=== PATIENT | male | born 1980 | race Caucasian/White ===

== ENCOUNTER 2020-12-14 14:59 | Emergency (ER) | payer BC, OTHER ==
[2020-12-14 15:23] VITALS: BP 128/86; PULSE 105
[2020-12-14] MEDS ORDERED: Lactated Ringers 1,000 ML IV ONE (15:31)
--- NOTE | 2020-12-14 15:31 | EDM.PDOC ---
ED HPI GENERAL MEDICAL PROBLEM - General Stated Complaint: ABD PAIN LOWER RIGHT Time Seen by Provider: 12/14/20 15:16 Source of Information: Reports: Patient, RN, RN Notes Reviewed History Limitations: Reports: No Limitations - History of Present Illness INITIAL COMMENTS - FREE TEXT/NARRATIVE: Alyson is a 40 y/o male who presents to the ED via personal vehicle with complaints of RLQ abdominal pain and constipation. The patient reports his pain began two nights ago and has waxed and waned in severity over that time. He characterizes the pain as a dull ache that occasionally causes cramping; he notes the pain sometimes radiates into his bilateral flanks. The patient states his last bowel movement was four days ago, he has subsequently been taking MiraLAX, stool softeners, and mineral oil for constipation with no results. Additionally, he reports mild dysuria which began this morning. He denies fever, shaking chills, nausea, vomiting, hematuria, or inability to void. Right Lower Abdomen Pain Score (Numeric/FACES): 4 - Related Data Allergies Allergy/AdvReac Type Severity Reaction Status Date / Time seasonal allergies Allergy Cannot Uncoded 12/14/20 15:29 Remember Home Meds: Home Meds Albuterol [Ventolin HFA] 2 puff INH Q4H PRN 05/03/15 [History] Budesonide 1 spray NASBOTH ASDIRECTED 05/03/15 [History] Cetirizine HCl/Pseudoephedrine [ZyrTEC-D] 1 tab PO BID PRN 05/03/15 [History] Omeprazole 20 mg PO DAILY 03/09/18 [History] Past Medical History Cardiovascular History: Reports: None Respiratory History: Reports: None Other Respiratory History: RAD from Seasonal Allergies Gastrointestinal History: Reports: Other (See Below) Other Gastrointestinal History: food gets stuck in throat Musculoskeletal History: Reports: None Neurological History: Reports: None Psychiatric History: Reports: None Endocrine/Metabolic History: Reports: None Hematologic History: Reports: None Immunologic History: Reports: None Oncologic (Cancer) History: Reports: None Dermatologic History: Reports: None - Past Surgical History HEENT Surgical History: Reports: Tonsillectomy Musculoskeletal Surgical History: Reports: None Social & Family History - Family History Family Medical History: No Pertinent Family History - Living Situation & Occupation Occupation: Employed ED ROS GENERAL - Review of Systems Review Of Systems: Comprehensive ROS is negative, except as noted in HPI. ED EXAM, GI/ABD - Physical Exam Exam: See Below Exam Limited By: No Limitations General Appearance: Alert, No Apparent Distress Eyes: Bilateral: Normal Appearance, EOMI Ears: Normal External Exam, Hearing Grossly Normal Nose: Normal Inspection, Normal Mucosa, No Blood Throat/Mouth: Normal Inspection, Normal Oropharynx, Normal Voice, No Airway Compromise Head: Atraumatic, Normocephalic Neck: Normal Inspection, Supple, Non-Tender, Full Range of Motion Respiratory/Chest: No Respiratory Distress, Lungs Clear, Normal Breath Sounds, No Accessory Muscle Use, Chest Non-Tender Cardiovascular: Normal Peripheral Pulses, Regular Rate, Rhythm, No Edema, No Gallop, No JVD, No Murmur, No Rub GI/Abdominal Exam: Soft, No Distention, No Abnormal Bruit, No Mass, Pelvis Stable, Tender (To palpation of RLQ), Abnormal Bowel Sounds (Hypoactive). No: Guarding, Rigid, Rebound (Male) Exam: Deferred Rectal (Males) Exam: Deferred Back Exam: Normal Inspection, Full Range of Motion. No: CVA Tenderness (L), CVA Tenderness (R) Extremities: Normal Inspection, Normal Range of Motion, Non-Tender, Normal C apillary Refill, No Pedal Edema Neurological: Alert, Oriented, CN II-XII Intact, Normal Cognition, Normal Gait, Normal Reflexes, No Motor/Sensory Deficits Psychiatric: Normal Affect, Normal Mood Skin Exam: Warm, Dry, Intact, Normal Color, No Rash. No: Cyanosis, Diaphoretic, Erythema, Jaundice, Mottled, Pallor, Petechiae Course - Vital Signs Last Recorded V/S: Last Vital Signs Temp 99.8 F 12/14/20 15:21 Pulse 105 H 12/14/20 15:21 Resp 16 12/14/20 15:21 BP 128/86 12/14/20 15:21 Pulse Ox 98 12/14/20 15:21 - Orders/Labs/Meds Labs: Laboratory Tests 12/14/20 12/14/20 12/14/20 Range/Units 15:18 15:18 15:18 WBC 14.4 H (5.0-10.0) 10^3/uL RBC 5.43 (4.6-6.2) 10^6/uL Hgb 16.2 (14.0-18.0) g/dL Hct 47.3 (40.0-54.0) % MCV 87.1 (80-100) fL MCH 29.8 (27.0-34.0) pg MCHC 34.2 (33.0-35.0) g/dL Plt Count 191 (150-450) 10^3/uL Neut % (Auto) 72.8 (42.2-75.2) % Lymph % (Auto) 14.9 L (20.5-50.1) % Ray % (Auto) 11.6 H (2-8) % Eos % (Auto) 0.5 L (1.0-3.0) % Baso % (Auto) 0.2 (0.0-1.0) % Sodium 139 (136-145) mmol/L Potassium 3.9 (3.5-5.1) mmol/L Chloride 98 (98-107) mmol/L Carbon Dioxide 29 (21-32) mmol/L Anion Gap 15.9 H (7-13) mEq/L BUN 8 (7-18) mg/dL Creatinine 0.96 (0.70-1.30) mg/dL Est Cr Clr Drug Dosing 107.73 mL/min Estimated GFR (MDRD) > 60 BUN/Creatinine Ratio 8.3 (No establ ref range) Glucose 105 H (70-99) mg/dL Lactic Acid 1.1 (0.4-2.0) mmol/L Calcium 9.0 (8.5-10.1) mg/dL Total Bilirubin 1.3 H (0.2-1.0) mg/dL AST 20 (15-37) U/L ALT 62 (16-63) U/L Alkaline Phosphatase 80 (46-116) U/L C-Reactive Protein 19.2 H (0.0-0.9) mg/dL Total Protein 7.7 (6.4-8.2) g/dL Albumin 3.7 (3.4-5.0) g/dL Globulin 4.0 Albumin/Globulin Ratio 0.9 Urine Color (YELLOW) Urine Appearance (CLEAR) Urine pH (5.0-9.0) Ur Specific [place] (1.005-1.030) Urine Protein (NEGATIVE) Urine Glucose (UA) (NEGATIVE) Urine Ketones (NEGATIVE) Urine Occult Blood (NEGATIVE) Urine Nitrite (NEGATIVE) Urine Bilirubin (NEGATIVE) Urine Urobilinogen (0.2-1.0) mg/dL Ur Leukocyte Esterase (NEGATIVE) Urine RBC (0-5) /HPF Urine WBC (0-5/HPF) /HPF Ur Epithelial Cells (NOT SEEN) /HPF Urine Opiates Screen (NEGATIVE) Ur Oxycodone Screen (NEGATIVE) Urine Methadone Screen (NEGATIVE) Ur Barbiturates Screen (NEGATIVE) U Tricyclic Antidepress (NEGATIVE) Ur Phencyclidine Scrn (NEGATIVE) Ur Amphetamine Screen (NEGATIVE) U Methamphetamines Scrn (NEGATIVE) Urine MDMA Screen (NEGATIVE) U Benzodiazepines Scrn (NEGATIVE) Urine Cocaine Screen (NEGATIVE) U Marijuana (THC) Screen (NEGATIVE) 12/14/20 12/14/20 Range/Units 16:01 16:01 WBC (5.0-10.0) 10^3/uL RBC (4.6-6.2) 10^6/uL Hgb (14.0-18.0) g/dL Hct (40.0-54.0) % MCV (80-100) fL MCH (27.0-34.0) pg MCHC (33.0-35.0) g/dL Plt Count (150-450) 10^3/uL Neut % (Auto) (42.2-75.2) % Lymph % (Auto) (20.5-50.1) % Ray % (Auto) (2-8) % Eos % (Auto) (1.0-3.0) % Baso % (Auto) (0.0-1.0) % Sodium (136-145) mmol/L Potassium (3.5-5.1) mmol/L Chloride (98-107) mmol/L Carbon Dioxide (21-32) mmol/L Anion Gap (7-13) mEq/L BUN (7-18) mg/dL Creatinine (0.70-1.30) mg/dL Est Cr Clr Drug Dosing mL/min Estimated GFR (MDRD) BUN/Creatinine Ratio (No establ ref range) Glucose (70-99) mg/dL Lactic Acid (0.4-2.0) mmol/L Calcium (8.5-10.1) mg/dL Total Bilirubin (0.2-1.0) mg/dL AST (15-37) U/L ALT (16-63) U/L Alkaline Phosphatase (46-116) U/L C-Reactive Protein (0.0-0.9) mg/dL Total Protein (6.4-8.2) g/dL Albumin (3.4-5.0) g/dL Globulin Albumin/Globulin Ratio Urine Color Yellow (YELLOW) Urine Appearance Clear (CLEAR) Urine pH 7.0 (5.0-9.0) Ur Specific [place] 1.015 (1.005-1.030) Urine Protein Negative (NEGATIVE) Urine Glucose (UA) Negative (NEGATIVE) Urine Ketones 15 H (NEGATIVE) Urine Occult Blood Trace-intact H (NEGATIVE) Urine Nitrite Negative (NEGATIVE) Urine Bilirubin Negative (NEGATIVE) Urine Urobilinogen 1.0 (0.2-1.0) mg/dL Ur Leukocyte Esterase Negative (NEGATIVE) Urine RBC 0-5 (0-5) /HPF Urine WBC 0-5 (0-5/HPF) /HPF Ur Epithelial Cells Rare (NOT SEEN) /HPF Urine Opiates Screen Negative (NEGATIVE) Ur Oxycodone Screen Negative (NEGATIVE) Urine Methadone Screen Negative (NEGATIVE) Ur Barbiturates Screen Negative (NEGATIVE) U Tricyclic Antidepress Negative (NEGATIVE) Ur Phencyclidine Scrn Negative (NEGATIVE) Ur Amphetamine Screen Negative (NEGATIVE) U Methamphetamines Scrn Negative (NEGATIVE) Urine MDMA Screen Negative (NEGATIVE) U Benzodiazepines Scrn Negative (NEGATIVE) Urine Cocaine Screen Negative (NEGATIVE) U Marijuana (THC) Screen Negative (NEGATIVE) Meds: Medications Discontinued Medications Generic Name Dose Route Start Last Admin Trade Name Maximo PRN Reason Stop Dose Admin Fentanyl 50 mcg 12/14/20 17:07 12/14/20 17:10 Fentanyl 100 Mcg/2 Ml Sdv IVPUSH 12/14/20 17:08 50 mcg ONETIME ONE Administration Fentanyl 50 mcg 12/14/20 17:57 Fentanyl 100 Mcg/2 Ml Sdv IVPUSH 12/14/20 17:58 ONETIME ONE Hydromorphone HCl 1 mg 12/14/20 18:01 12/14/20 18:10 Hydromorphone 1 Mg/Ml Syringe IM 12/14/20 18:02 1 mg ONETIME ONE Administration Lactated Ringer's 1,000 mls @ 999 mls/hr 12/14/20 15:31 12/14/20 15:37 Ringers, Lactated IV 12/14/20 16:31 999 mls/hr .BOLUS ONE Administration Piperacillin Sod/Tazobactam 100 mls @ 200 mls/hr 12/14/20 16:35 12/14/20 17:05 Sod 3.375 gm/ Sodium Chloride IV 12/14/20 17:04 200 mls/hr ONETIME ONE Administration Iopamidol 100 ml 12/14/20 15:33 12/14/20 16:05 Iopamidol 612 Mg/Ml 100 Ml Bottle IVPUSH 12/14/20 15:34 100 ml ONETIME ONE Administration - Radiology Interpretation Free Text/Narrative:: [facility] Final Radiology Report Call: [phone] assistance Online chat: [email or web address] Name: ALYSON HAMMOND Age: 40Years M Date: 12/14/2020 SSN: -- : [id number] Study: CT ABDOMEN PELVIS W CONT Requesting Physician: Faith Smith Images: [id number] Addl Studies: Provided Clinical History: Right lower quadrant pain x2 days; No BM x4 days Contrast: With Contrast Medium: isovue 300 Contrast Amount: 100 mL Contrast Method: Intravenous (IV) Page 1 of 2 PROCEDURE INFORMATION: Exam: CT Abdomen And Pelvis With Contrast Exam date and time: 12/14/2020 3:46 PM Age: 40 years old Clinical indication: Abdominal pain; Localized; Right lower quadrant (rlq); Additional info: Right lower quadrant pain x2 days; No bm x4 days, elevated wbc, rule out appy TECHNIQUE: Imaging protocol: Computed tomography of the abdomen and pelvis with contrast. Radiation optimization: All CT scans at this facility use at least one of these dose optimization techniques: automated exposure control; mA and/or kV adjustment per patient size (includes targeted exams where dose is matched to clinical indication); or iterative reconstruction. Contrast material: ISOVUE 300; Contrast volume: 100 ml; Contrast route: INTRAVENOUS (IV); COMPARISON: No relevant prior studies available. FINDINGS: Liver: Normal. No mass. Gallbladder and bile ducts: Normal. No calcified stones. No ductal dilation. Pancreas: Normal. No ductal dilation. Spleen: Normal. No splenomegaly. Adrenal glands: Normal. No mass. Kidneys and ureters: Normal. No hydronephrosis. Stomach and bowel: Unremarkable. No obstruction. No mucosal thickening. Appendix: An appendicolith is noted. The appendix is enlarged and inflamed. Trace surrounding fluid. Mild surrounding stranding. No kristy perforation. Intraperitoneal space: See "Appendix" finding. Vasculature: Unremarkable. No abdominal aortic aneurysm. Lymph nodes: Unremarkable. No enlarged lymph nodes. Urinary bladder: Unremarkable as visualized. Reproductive: Unremarkable as visualized. Bones/joints: Unremarkable. No acute fracture. Soft tissues: Unremarkable. IMPRESSION: Acute appendicitis Findings discussed with the ordering provider Ferny Smith at 1:25 p.m. Thank you for allowing us to participate in the care of your patient. Dictated and Authenticated by: Clark Baeza MD 12/14/2020 4:25 PM Central Time ([place] & [place]) - Re-Assessments/Exams Free Text/Narrative Re-Assessment/Exam: 12/14/20 LR 1L bolus initiated. Patient denies want for pain medication at this time. Blood work pending. CT abdomen/pelvis confirms acute appendicitis. Zosyn 3.375mg initiated. Fentanyl 50mcg administered. Case discussed with [facility], no beds available at this time. Case discussed with Dr. Graves, ER physician at [facility], who accepted patient for transfer. No transport available via EMS for ~5 hours as rigs are currently transporting other patients. Patient to receive Zosyn IV in the ED and present to [facility] via private vehicle. Dr. Graves notified. Departure - Departure Time of Disposition: 17:33 Disposition: DC/Tfer to Acute Hospital 02 Condition: Fair Clinical Impression: Acute appendicitis Qualifiers: Acute appendicitis type: with localized peritonitis Appendicitis gangrene p resence: with gangrene Appendicitis perforation presence: without perforation Appendicitis abscess presence: without abscess Qualified Code(s): K35.31 - Acute appendicitis with localized peritonitis and gangrene, without perforation Constipation Qualifiers: Constipation type: other constipation type Qualified Code(s): K59.09 - Other constipation - Discharge Information Referrals: Bam Jolley MD [Primary Care Provider] - Forms: Interfacility Transfer JAMES
[2020-12-14] MEDS ORDERED: Iopamidol 612 MG/ML 100 ML Bottle IVPUSH ONE (15:33)
[2020-12-14 15:52] LABS: ANION GAP 15.9 mEq/L (7-13); CHLORIDE,CL 98 mmol/L (98-107); SODIUM,NA 139 mmol/L (136-145)
[2020-12-14 16:13] LABS: AMPHETAMINES,URINE NEGATIVE (NEGATIVE); BARBITURATES,URINE NEGATIVE (NEGATIVE); BENZODIAZEPINE,URINE NEGATIVE (NEGATIVE); MDMA (ECSTASY), URINE NEGATIVE (NEGATIVE); METHADONE,URINE NEGATIVE (NEGATIVE); METHAMPHETAMINES,URINE NEGATIVE (NEGATIVE); OPIATES,URINE NEGATIVE (NEGATIVE); OXYCODONE,URINE NEGATIVE (NEGATIVE); PHENCYCLIDINE,URINE NEGATIVE (NEGATIVE); TCA,URINE NEGATIVE (NEGATIVE)
--- NOTE | 2020-12-14 16:26 | CT ---
PROCEDURE INFORMATION: Exam: CT Abdomen And Pelvis With Contrast Exam date and time: 12/14/2020 3:46 PM Age: 40 years old Clinical indication: Abdominal pain; Localized; Right lower quadrant (rlq); Additional info: Right lower quadrant pain x2 days; No bm x4 days, elevated wbc, rule out appy TECHNIQUE: Imaging protocol: Computed tomography of the abdomen and pelvis with contrast. Radiation optimization: All CT scans at this facility use at least one of these dose optimization techniques: automated exposure control; mA and/or kV adjustment per patient size (includes targeted exams where dose is matched to clinical indication); or iterative reconstruction. Contrast material: ISOVUE 300; Contrast volume: 100 ml; Contrast route: INTRAVENOUS (IV); COMPARISON: No relevant prior studies available. FINDINGS: Liver: Normal. No mass. Gallbladder and bile ducts: Normal. No calcified stones. No ductal dilation. Pancreas: Normal. No ductal dilation. Spleen: Normal. No splenomegaly. Adrenal glands: Normal. No mass. Kidneys and ureters: Normal. No hydronephrosis. Stomach and bowel: Unremarkable. No obstruction. No mucosal thickening. Appendix: An appendicolith is noted. The appendix is enlarged and inflamed. Trace surrounding fluid. Mild surrounding stranding. No kristy perforation. Intraperitoneal space: See "Appendix" finding. Vasculature: Unremarkable. No abdominal aortic aneurysm. Lymph nodes: Unremarkable. No enlarged lymph nodes. Urinary bladder: Unremarkable as visualized. Reproductive: Unremarkable as visualized. Bones/joints: Unremarkable. No acute fracture. Soft tissues: Unremarkable. IMPRESSION: Acute appendicitis Findings discussed with the ordering provider Ferny Smith at 1:25 p.m.
[2020-12-14] MEDS ORDERED: Piperacillin/Tazobactam 3.375 GM in Sodium Chloride 0.9% 100 ML IV ONE (16:35)
[2020-12-14] MEDS ORDERED: fentaNYL 100 MCG/2 ML SDV IVPUSH ONE ×2 (17:07→17:57)
[2020-12-14] MEDS ORDERED: HYDROmorphone 1 MG/ML Syringe IM ONE (18:01)
== END 2020-12-14 18:15 ==
LOC: DL.ED 14:59
DX: K35.31 Acute appendicitis with localized peritonitis and gangrene, without perforation (principal); K59.09 Other constipation
CPT/HCPCS: 36415; 74177; 80053; 80305-QW; 81001; 83605; 85025; 86140; 96365; 96372; 96375; 99284; 99285-25; J1170; J2543; J3010; J7120; Q9967